=== PATIENT | male | born 1990 | race Caucasian/White ===

== ENCOUNTER 2019-05-13 09:26 | Emergency (ER) | payer OTHER ==
[~2019-05-13] VITALS: Ht 167.6 cm; Wt 76.7 kg
[2019-05-13 09:29] VITALS: BP 114/68; Ht 167.6 cm; Wt 76.7 kg
== END 2019-05-13 10:35 | disposition home or self-care (01) ==
LOC: ED 09:26
DX: S01.111D Laceration without foreign body of right eyelid and periocular area, subsequent encounter (principal); X58.XXXD Exposure to other specified factors, subsequent encounter